=== PATIENT | female | born 1990 | race Caucasian/White ===

== ENCOUNTER 2018-07-03 14:03 | Emergency (ER) | payer SELFPAY ==
[~2018-07-03] VITALS: Ht 172.7 cm; Wt 118.0 kg
[2018-07-03 15:08] LABS: HEMATOCRIT 38.3 % (37.0-47.0); HEMOGLOBIN 12.2 g/dl (12.0-16.0); IMMATURE GRANULOCYTES 0.4 % (0.0-5.0); MEAN CORPUSCULAR HGB 27.7 pG CALC (26.0-32.0); MEAN CORPUSCULAR HGB CONC 31.9 g/L CALC (32.0-36.0); NEUT# 5.81 thou/uL (2.00-7.15); RED BLOOD COUNT 4.4 mill/uL (4.20-5.60); RED CELL DISTRI WIDTH 13.7 % (11.5-15.5)
[2018-07-03 15:20] LABS: ALBUMIN 4.4 g/dL (3.2-5.0); ALKALINE PHOSPHATASE 128 u/l (38-126); ANION GAP 19 (6-22 (CALC)); BILIRUBIN, TOTAL 0.2 mg/dL (0.0-1.4); BUN 9 mg/dL (7-17); BUN/CREATININE RATIO 13 (12-20 (CALC)); CARBON DIOXIDE 23 mmol/l (22-30); CHLORIDE 104 mmol/l (95-108); CREATININE 0.7 mg/dL (0.5-1.0); GFR > 60 ML/MIN (>=60 (CALC)); GFR FOR AFR.AMER. > 60 ML/MIN (>=60 (CALC)); POTASSIUM 4.4 mmol/l (3.5-5.1); SGOT/AST 30 u/l (14-36); SGPT/ALT 42 u/l (9-52); SODIUM 142 mmol/l (137-146); TOTAL PROTEIN 8.1 g/dL (6.3-8.2)
[2018-07-03 15:23] LABS: URINE BILIRUBIN - DIPSTICK NEGATIVE (NEGATIVE); URINE BLOOD DIPSTICK NEGATIVE (NEGATIVE); URINE COLOR YELLOW; URINE GLUCOSE - DIPSTICK NEGATIVE (NEGATIVE); URINE KETONE NEGATIVE (NEGATIVE); URINE LEUK ESTERASE NEGATIVE (NEGATIVE); URINE NITRITE - DIPSTICK NEGATIVE (Negative); URINE PROTEIN - DIPSTICK NEGATIVE (NEG-TRACE); URINE UROBILINOGEN - DIPSTICK 0.2 E.U./dL (0.2)
[2018-07-03 15:47] LABS: URINE CLARITY CLEAR
[2018-07-03] MEDS ORDERED: MOTRIN800 MG PO (17:18)
[2018-07-03 17:33] VITALS: BP 139/80
== END 2018-07-03 17:33 | disposition home or self-care (01) | DRG 392 ==
LOC: ED 14:03
PROVIDERS: Emergency Medicine
DX: R10.31 Right lower quadrant pain (principal); E28.2 Polycystic ovarian syndrome
CPT/HCPCS: Q9967

== ENCOUNTER 2018-12-23 12:14 | Emergency (ER) | payer BC ==
[~2018-12-23] VITALS: Ht 172.7 cm; Wt 120.0 kg
[~2018-12-23 12:14] MED LIST: MOTRIN800 MG PO
[2018-12-23] MEDS ORDERED: ZITHROMAX250 MG PO (12:21)
[2018-12-23] MEDS ORDERED: AUGMENTIN875TAB PO (12:25)
[2018-12-23 12:42] VITALS: BP 161/95
== END 2018-12-23 12:42 | disposition home or self-care (01) | DRG 153 ==
LOC: ED 12:14
DX: J02.0 Streptococcal pharyngitis (principal); R59.0 Localized enlarged lymph nodes; R51 Headache; H92.03 Otalgia, bilateral

== ENCOUNTER 2023-07-12 20:12 | Emergency (ER) | payer BC ==
[2023-07-12] VITALS (16 sets, daily range): BP systolic 132–176; BP diastolic 80–105
[~2023-07-12] VITALS: Ht 172.7 cm; Wt 112.0 kg
[~2023-07-12 20:12] MED LIST changes: +AUGMENTIN875TAB PO; +IRON325 M1; +LEXAPRO10 MG PO; +METFORMIN HCL500 M1 PO; +OMEPRAZOLE DR40 MG; +WELLBUTRIN100 M2 PO; +XANAX0.5 MG PO; +ZITHROMAX250 MG PO
[2023-07-12 21:13] LABS: BASO% 0.5 % (0-3); EOS% 4.3 % (0-8); HEMATOCRIT 36.6 % (37.0-47.0); HEMOGLOBIN 11.4 g/dl (12.0-16.0); IMMATURE GRANULOCYTES 0.6 % (0.0-5.0); LYMPH% 23.9 % (15-41); MEAN CELL VOLUME 80.6 fL CALC (80.0-100.0); MEAN CORPUSCULAR HGB 25.1 pG CALC (26.0-32.0); MEAN CORPUSCULAR HGB CONC 31.1 g/dL CAL (32.0-36.0); MONO% 9.1 % (2-13); NEUT# 7.47 thou/uL (2.00-7.15); NEUT% 61.6 % (42-76); RED BLOOD COUNT 4.54 mill/uL (4.20-5.60); RED CELL DISTRI WIDTH 15.8 % (11.5-15.5)
[2023-07-12 21:23] LABS: ALBUMIN 4.5 g/dL (3.2-5.0); ALKALINE PHOSPHATASE 97 u/l (38-126); BUN 5 mg/dL (7-17); BUN/CREATININE RATIO 9 (12-20 (CALC)); CHLORIDE 108 mmol/l (95-108); CREATININE 0.6 mg/dL (0.5-1.0); GFR FOR AFR.AMER. > 60 ML/MIN (>=60 (CALC)); GFR OTHER RACES > 60 ML/MIN (>=60 (CALC)); POTASSIUM 3.8 mmol/l (3.5-5.1); SGOT/AST 29 u/l (14-36); SODIUM 140 mmol/l (137-146)
[2023-07-12 21:25] LABS: ANION GAP 15 (6-22 (CALC)); BILIRUBIN, TOTAL 0.3 mg/dL (0.02-1.3); CARBON DIOXIDE 21 mmol/l (22-30)
== END 2023-07-12 23:51 | disposition home or self-care (01) | DRG 153 ==
LOC: ED 20:12
PROVIDERS: Emergency Medicine
DX: J06.9 Acute upper respiratory infection, unspecified (principal); I16.9 Hypertensive crisis, unspecified; R07.9 Chest pain, unspecified; Z20.822 Contact with and (suspected) exposure to COVID-19